=== PATIENT | female | born 1965 | race Caucasian/White ===

== ENCOUNTER 2017-04-02 09:57 | Day surgery (SDC) | payer OTHER ==
[2017-03-26 10:07] VITALS: BMI 26.4
[2017-04-02] MEDS ORDERED: Propofol 10 mg/ml Inj (20 ML) ONE (11:23)
[2017-04-02] MEDS ORDERED: Sodium Chloride 0.9% 1,000 ML IV SCH (11:45)
[2017-04-02 14:15] VITALS: BP 135/72; PULSE 61; RESP 18; TEMP 97.8; O2SAT 98
== END 2017-04-02 14:34 | disposition home or self-care (01) ==
LOC: ENDO 09:57
PROVIDERS: ATTEND Internal Medicine
DX: K57.30 Diverticulosis of large intestine without perforation or abscess without bleeding (principal); K64.8 Other hemorrhoids; K31.7 Polyp of stomach and duodenum; K29.70 Gastritis, unspecified, without bleeding
CPT/HCPCS: 43239; 45378; 84703; 88304; 88305; J2001; J2704; J3010; J7040

== ENCOUNTER 2017-05-30 13:07 | Emergency (ER) | payer OTHER ==
[2017-05-30 13:08] VITALS: BMI 26.4
[2017-05-30 13:45] VITALS: TEMP 98.4
--- NOTE | 2017-05-30 14:22 | ED PDOC ---
Arrival/HPI - General Chief Complaint: Abnormal Skin Integrity Time Seen by Provider: 05/30/17 13:41 Historian: Patient - History of Present Illness Narrative History of Present Illness (Text): 05/30/17 14:16 51 y/o female, pmh including asthma, post menopausal, nkda, c/o vaginal itching on the outside x 3 days. Pt. stated that she has been working out at the gym recently with the tight clothings and sweats along on the inner thigh, started to have vaginal itching about 3 days ago and both inner thigh, no vaginal bleeding or discharge, no vaginal discharge, no pelvic or abdominal pain, no night sweat, no dizziness, no rash, no numbness or tingling, no other medical or psychological complaints. Past Medical History - Provider Review Nursing Documentation Reviewed: Yes - Infectious Disease Hx of Infectious Diseases: None - Reproductive Menopause: Yes - Cardiac Hx Pacemaker: No - Neurological Hx Paralysis: No - Hematological/Oncological Hx Blood Transfusions: No - Musculoskeletal/Rheumatological Hx Musculoskeletal Disorders: No - Psychiatric Hx Emotional Abuse: No Hx Physical Abuse: No Hx Substance Use: No - Anesthesia Hx Anesthesia: No Hx Anesthesia Reactions: No Hx Malignant Hyperthermia: No - Suicidal Assessment Feels Threatened In Home Enviroment: No Family/Social History - Physician Review Nursing Documentation Reviewed: Yes Family/Social History: Unknown Family HX Smoking Status: Never Smoked Hx Alcohol Use: No Hx Substance Use: No Allergies/Home Meds Allergies/Adverse Reactions: Allergies peanut Allergy (Verified 05/30/17 13:45) ANAPHYLAXIS APPLES Allergy (Uncoded 05/30/17 13:45) RASH CHERRIES Allergy (Uncoded 05/30/17 13:45) RASH PEAR Allergy (Uncoded 05/30/17 13:45) RASH Home Medications: Home Meds Medication Instructions Recorded Confirmed Albuterol HFA [Ventolin HFA 90 2 puff IH Q4H PRN 03/26/17 05/30/17 mcg/actuation (8 g)] Multivitamin/Iron/Folic Acid 1 tab PO DAILY 03/26/17 05/30/17 [Centrum Women Tablet] Review of Systems - Review of Systems Constitutional: absent: Fatigue, Fevers Eyes: absent: Vision Changes ENT: absent: Hearing Changes Respiratory: absent: SOB, Cough Cardiovascular: absent: Chest Pain Gastrointestinal: absent: Abdominal Pain, Diarrhea, Nausea, Vomiting Genitourinary Female: absent: Dysuria, Frequency, Hematuria, Urine Output Changes, Vaginal Bleeding, Vaginal Discharge Musculoskeletal: absent: Arthralgias, Back Pain, Myalgias Skin: Rash, Pruritis. absent: Skin Lesions, Laceration, Abscess, Ulcer, Cellulitis Psychiatric: absent: Anxiety, Depression Physical Exam Vital Signs Reviewed: Yes Vital Signs Temp Pulse Resp BP Pulse Ox 05/30/17 15:13 79 16 147/90 100 05/30/17 13:51 106 H 18 135/88 98 05/30/17 13:37 98.4 F 106 H 19 135/88 99 Temperature: Afebrile Blood Pressure: Normal Pulse: Tachycardic Respiratory Rate: Normal Appearance: Positive for: Well-Appearing, Non-Toxic, Comfortable Pain Distress: None Mental Status: Positive for: Alert and Oriented X 3 - Systems Exam Head: Present: Atraumatic, Normocephalic Pupils: Present: PERRL Extroacular Muscles: Present: EOMI Conjunctiva: Present: Normal Mouth: Present: Moist Mucous Membranes Neck: Present: Normal Range of Motion Respiratory/Chest: Present: Clear to Auscultation, Good Air Exchange. No: Respiratory Distress, Accessory Muscle Use Cardiovascular: Present: Regular Rate and Rhythm, Normal S1, S2. No: Murmurs Abdomen: Present: Normal Bowel Sounds. 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 No: Normal External Genitalia (there is erythematous with lichenification noted on the bilateral upper thigh region and the vaginal labial region, no vesicular lesion. ), Vaginal Bleeding, Vaginal Lesions, Adenexal Tenderness, Adenexal Mass , Cervical Motion Tendernes, Odor Back: Present: Normal Inspection Upper Extremity: Present: Normal Inspection. No: Cyanosis, Edema Lower Extremity: Present: Normal Inspection. No: Edema Neurological: Present: GCS=15, CN II-XII Intact, Speech Normal Skin: Present: Warm, Dry, Normal Color. No: Rashes Psychiatric: Present: Alert, Oriented x 3, Normal Insight, Normal Concentration Medical Decision Making ED Course and Treatment: 05/30/17 14:53 -diflucan -Discharge home with lotrisone, avoid tight clothing, keep the private part cool /dry and clean, follow up with your own pmd and obgyn/pmp within 2 days, return to the ER for any new or worsening sign so symptoms - Medication Orders Current Medication Orders: Discontinued Medications Fluconazole (Diflucan) 150 mg PO STAT STA PRN Reason: Protocol Stop: 05/30/17 14:49 Last Admin: 05/30/17 15:07 Dose: 150 mg - PA / GARDENING SUPERVISOR / Resident Statement MD/DO has reviewed & agrees with the documentation as recorded. Disposition/Present on Arrival - Present on Arrival Any Indicators Present on Arrival: No History of DVT/PE: No History of Uncontrolled Diabetes: No Urinary Catheter: No History of Decub. Ulcer: No History Surgical Site Infection Following: None - Disposition Have Diagnosis and Disposition been Completed?: Yes Diagnosis: Vaginal yeast infection, Tinea cruris Disposition: HOME/ ROUTINE Disposition Time: 14:55 Patient Plan: Discharge Condition: GOOD Additional Instructions: Discharge home with lotrisone, avoid tight clothing, keep the private part cool/ dry and clean, follow up with your own pmd and obgyn/pmp within 2 days , return to the ER for any new or worsening sign so symptoms Prescriptions: Clotrimazole/Betamethasone [Lotrisone] 1 appl EXT BID #60 g Referrals: Gabriela Dawn MD [Primary Care Provider] - Follow up with primary Kyle Davis [Medical Doctor] - Follow up with primary Forms: [employer] (Somali), WORK NOTE
[2017-05-30 15:14] VITALS: BP 147/90; PULSE 79; RESP 16; O2SAT 100
== END 2017-05-30 15:13 | disposition home or self-care (01) ==
LOC: ED 13:07
DX: B37.3 Candidiasis of vulva and vagina (principal); B35.6 Tinea cruris